=== PATIENT | female | born 1955 | race Caucasian/White ===

== ENCOUNTER 2018-11-03 06:30 | Inpatient (IN) | payer OTHER ==
[~2018-11-03] VITALS: Ht 162.6 cm; Wt 65.8 kg
[2018-11-03] MEDS ORDERED: HYDROmorphONE 1 MG/ML SYG IV STA (06:43)
[2018-11-03] MEDS ORDERED: ONDANSETRON 4 MG INJ IV STA (06:43)
[2018-11-03] MEDS ORDERED: SOD CHLORIDE 0.9% 1,000 ML IV STA (06:43)
[2018-11-03] MEDS ORDERED: IOHEXOL 100 ML ONE (07:49)
[2018-11-03] MEDS ORDERED: SOD CHLORIDE 0.9% 100 ML ONE (07:49)
--- NOTE | 2018-11-03 07:51 | ERD ---
ER Documentation Chief Complaint Chief Complaint left shoulder,breast, half body ppain x several days HPI 62F no significant past medical history presents to the emergency room complaining of left-sided thoracic pain. The patient describes severe 10 out of 10 sharp left-sided chest wall pain. She notes associated shortness of breath. The patient has had 4 days of symptoms have been progressively worsening. She denies any fevers or chills. No calf swelling or leg swelling or history of immobilization or DVT. The patient takes no estrogen supplementation. She denies any exertional symptoms, no diaphoresis. She denies abdominal pain or lower back pain. ROS All systems reviewed and are negative except as per history of present illness. Medications Home Meds Reported Medications Ibuprofen* (Motrin*) 800 Mg Tab, 800 MG PO Q8 PRN for PAIN, TAB 11/03/18 Cyclobenzaprine Hcl* (Cyclobenzaprine Hcl*) 10 Mg Tablet, 10 MG PO Q8 PRN for MUSCLE SPASMS, #60 TAB 11/03/18 Cholecalciferol* (Vitamin D3*) 1,000 Unit Tablet, 1000 UNIT PO DAILY, TAB 11/03/18 Estradiol* (Estrace*) 1 Mg Tablet, 1 MG PO DAILY, TAB 11/03/18 Fluoxetine Hcl* (Prozac*) 10 Mg Capsule, 30 MG PO DAILY, CAP 11/03/18 Allergies Allergies: Coded Allergies: Penicillins (Verified Allergy, Unknown, 11/03/18) morphine (Verified Allergy, Unknown, 11/03/18) pseudoephedrine (Verified Allergy, Unknown, 11/03/18) PMhx/Soc History of Surgery: Yes (l. shoulder sx, total hysterectomy, dolores lower eyelids) Hx Respiratory Disorders: Yes (asthma) Hx Miscellaneous Medical Probl: Yes (pre diabetic) Hx Alcohol Use: Yes (socially) Hx Substance Use: Yes (medicinal marijuana) Hx Tobacco Use: No Smoking Status: Former smoker FmHx Family History: No diabetes Physical Exam Vitals Vital Signs Date Temp Pulse Resp B/P (MAP) Pulse Ox O2 O2 Flow FiO2 Time Delivery Rate 11/03/18 70 10 160/80 100 Nasal 2.0 08:33 (106) Cannula 11/03/18 Nasal 5 06:50 Cannula 11/03/18 97.7 109 18 174/91 99 06:33 (118) Physical Exam General: Very uncomfortable Head: Normocephalic, atraumatic. Eyes: Pupils equally reactive, EOM intact ENT: Moist mucous membranes Neck: Supple, no lymphadenopathy Respiratory: Lungs clear bilaterally, no distress Cardiovascular: RRR, no murmurs, rubs, or gallops Abdominal: Soft, non-tender, non-distended, no peritoneal signs : Deferred MSK: No edema, no unilateral swelling, 5/5 strength Neurologic: Alert and oriented, moving all extremities, normal speech, no focal weakness, no cerebellar signs Skin: No rash Psych: Normal mood Result Diagram: 11/03/1865411/03/1855 Results 24 hrs Laboratory Tests Test 11/03/18 06:55 White Blood Count 10.4 10^3/ul Red Blood Count 5.29 10^6/ul Hemoglobin 14.7 g/dl Hematocrit 45.5 % Mean Corpuscular Volume 86.0 fl Mean Corpuscular Hemoglobin 27.8 pg Mean Corpuscular Hemoglobin Concent 32.3 g/dl Red Cell Distribution Width 15.2 % Platelet Count 332 10^3/UL Mean Platelet Volume 9.7 fl Immature Granulocytes % 0.500 % Neutrophils % 67.7 % Lymphocytes % 22.4 % Monocytes % 7.9 % Eosinophils % 0.8 % Basophils % 0.7 % Nucleated Red Blood Cells % 0.0 /100WBC Immature Granulocytes # 0.050 10^3/ul Neutrophils # 7.1 10^3/ul Lymphocytes # 2.3 10^3/ul Monocytes # 0.8 10^3/ul Eosinophils # 0.1 10^3/ul Basophils # 0.1 10^3/ul Nucleated Red Blood Cells # 0.0 10^3/ul Prothrombin Time 12.8 Sec Prothrombin Time Ratio 1.0 INR International Normalized Ratio 0.95 Activated Partial Thromboplast Time 31.8 Sec Sodium Level 143 mmol/L Potassium Level 4.2 mmol/L Chloride Level 107 mmol/L Carbon Dioxide Level 24 mmol/L Anion Gap 12 Blood Urea Nitrogen 15 mg/dl Creatinine 0.80 mg/dl Est Glomerular Filtrat Rate mL/min > 60 mL/min Glucose Level 131 mg/dl Calcium Level 9.9 mg/dl Troponin I < 0.012 ng/ml Current Medications Medications Dose Sig/Salomon Start Time Status Last (Trade) Ordered Route PRN Stop Time Admin Dose Reason Admin Sodium 1,000 ml @ Q1H STAT 11/03/18 DC 11/03/18 Chloride 1,000 mls/hr IV 06:43 07:01 11/03/18 07:42 1 mg ONCE STAT 11/03/18 DC 11/03/18 Hydromorphone IV 06:43 07:01 HCl 11/03/18 06:48 (Dilaudid) Ondansetron 4 mg ONCE STAT 11/03/18 DC 11/03/18 HCl (Zofran IV 06:43 07:01 Inj) 11/03/18 06:48 IV Flush 10 ml STK-MED 11/03/18 DC 11/03/18 (NS 10 ml) ONCE .ROUTE 07:49 08:12 11/03/18 07:50 Sodium 100 ml @ ud STK-MED 11/03/18 DC 11/03/18 Chloride ONCE .ROUTE 07:49 08:12 11/03/18 07:50 Iohexol 100 ml @ ud STK-MED 11/03/18 DC 11/03/18 ONCE .ROUTE 07:49 08:13 11/03/18 07:50 Apixaban 10 mg ONCE ONCE 11/03/18 DC (Eliquis) PO 09:00 11/03/18 09:01 Procedures/MDM EKG, MONITORS, & DIAGNOSTIC IMAGING: EKG: I reviewed and interpreted a 12-lead EKG. Rhythm: Normal sinus rhythm ST Changes: No contiguous ST segment elevations T waves: No contiguous T wave inversions Impression: [No evidence of acute cardiac ischemia] Chest x-ray: I reviewed and interpreted a 1 view of the chest Mediastinum: No enlargement Cardiac silhouette: No cardiomegaly Airspace: Clear lung wood bilaterally without evidence of pneumothorax Bones: No evidence of fracture CTPA: IMPRESSION: 1. Bilateral pulmonary emboli involving the right middle lobe, right in terlobar, right basal segmental and left basal segmental pulmonary arterial branches. 2. Small left pleural effusion with left lateral and posterior basilar subsegmental atelectasis. A small focal peripheral lateral basilar pulmonary infarct may be present. 3. Multiple hepatic cysts. 4. Heterogeneous sinusoidal appearance to the partially visualized upper spleen. Note a splenic infarct cannot be totally excluded. LAB INTERPRETATION: I reviewed the laboratory testing and it shows [no evidence of acute process] MEDICAL DECISION MAKING: The patient has quite severe thoracic pain. Differentials extremely broad and most likely musculoskeletal, muscle spasm versus pleurisy. However, the patient is describing a pleuritic component this raises a concern for pulmonary embolism. The patient qualifies for Wells moderate risk criteria therefore a CT PE would be indicated instead of d-dimer. Much lower clinical concern for aortic process given 4 days of symptoms. Low concern for ACS as well given no exertional symptoms, reproducible symptoms. ER COURSE: * Patient given pain control medication. * The patient has a CAT scan showing evidence of bilateral pulmonary emboli. * The patient has no contraindications to anticoagulation. Given the patient's hemodynamic stability and unlikely that she would require clot retrieval Eliquis was provided. First dose given in the emergency room. * Patient will be admitted for further management. CONSULTATION: [None] DISPOSITION PLAN: Accepting care team and consultations: I discussed the current laboratory data, diagnostic imaging and emergency care provided. Admitting team: Dr. Almazan Admitting team indication: Insurance directed Departure Diagnosis: Primary Impression: Bilateral pulmonary embolism Additional Impression: Pulmonary infarct Condition: JESÚS Braxton MD Nov 03, 2018 07:50
[2018-11-03] MEDS ORDERED: CYCL10TA7 PO (07:52)
[2018-11-03] MEDS ORDERED: FLUO10CA26 PO (07:52)
[2018-11-03] MEDS ORDERED: CHOL100062 PO (07:52)
[2018-11-03] MEDS ORDERED: ESTR1TAB23 PO (07:52)
[2018-11-03] MEDS ORDERED: IBUP800T48 PO (07:52)
[2018-11-03] MEDS ORDERED: APIXABAN 5 MG TABLET PO ONE (09:00)
[2018-11-03] MEDS ORDERED: ONDANSETRON 4 MG INJ IV PRN (09:30)
[2018-11-03] MEDS ORDERED: ACETAMINOPHEN 325 MG TAB PO PRN (09:30)
--- NOTE | 2018-11-03 10:58 | HP ---
Date/Time of Note Date/Time of Note DATE: 11/03/18 TIME: 10:52 Assessment/Plan VTE Prophylaxis Pharmacological prophylaxis: apixaban Lines/Catheters IV [facility] Type [facility] Saline Lock Assessment/Plan Hospital Course SUBJECTIVE: Seen and evaluated patient in ER room 4. Currently not in any acute distress. OBJECTIVE: Vital signs-see below PHYSICAL EXAM: Constitutional: Adequately built,not in acute distress. HEENT: Head atraumatic and normocephalic. Eyes: Extraocular muscles intact. Anicteric sclerae. Pupils equal bilaterally, reactive to light. NECK: Supple without lymph node. CHEST: Diminished bibasilar. . No wheezing. No rhonchi. HEART: S1, S2. Regular rate and rhythm. ABDOMEN: Soft/non tender with no rebound tenderness. Bowel sounds were present. EXTREMITIES: No cyanosis, clubbing or edema. NEUROLOGIC: Alert and oriented x3. No focal deficit. No sensory deficit. PSYCHOSOCIAL: No signs of depression. INTEGUMENTARY: No open wounds. ASSESSMENT AND PLAN: 62 yo F w/ asthma, medicinal marijuana use, left shoulder surgery, left eyelid surgery, total hysterectomy, prediabetes, borderline dyslipidemia,on estrogen sup brought into the emergency room with sudden onset of left-sided lower chest wall pain with inspiration which has been going on since Thursday after her road trip from [place], found to have bilateral PE.. Bilateral pulmonary embolism -Start anticoagulation preferably Eliquis-CM to work on insurance authorization. -Pulmonary consult -DVT ultrasound BLE -Stop estradiol Prediabetes -Obtain A1c -Monitor -Diet modifications Borderline dyslipidemia -We will follow-up with a lipid panel -Low-cholesterol diet Anxiety/depressive disorders -Resume home medications GERD -ppi Prophylaxis: Eliquis/Protonix Rest of the management depend on clinical course. Approximately 60-minute was spent on this history and physical. Patient was seen in collaboration with Dr. Smith. Result Diagram: 11/03/18 0655 11/03/18 0655 Results 24hrs Laboratory Tests Test 11/03/18 06:55 White Blood Count 10.4 Red Blood Count 5.29 Hemoglobin 14.7 Hematocrit 45.5 Mean Corpuscular Volume 86.0 Mean Corpuscular Hemoglobin 27.8 L Mean Corpuscular Hemoglobin Concent 32.3 Red Cell Distribution Width 15.2 H Platelet Count 332 Mean Platelet Volume 9.7 Immature Granulocytes % 0.500 H Neutrophils % 67.7 Lymphocytes % 22.4 Monocytes % 7.9 Eosinophils % 0.8 Basophils % 0.7 Nucleated Red Blood Cells % 0.0 Immature Granulocytes # 0.050 H Neutrophils # 7.1 Lymphocytes # 2.3 Monocytes # 0.8 Eosinophils # 0.1 Basophils # 0.1 Nucleated Red Blood Cells # 0.0 Prothrombin Time 12.8 Prothrombin Time Ratio 1.0 INR International Normalized Ratio 0.95 Activated Partial Thromboplast Time 31.8 Sodium Level 143 Potassium Level 4.2 Chloride Level 107 Carbon Dioxide Level 24 Anion Gap 12 Blood Urea Nitrogen 15 Creatinine 0.80 Est Glomerular Filtrat Rate mL/min > 60 Glucose Level 131 Calcium Level 9.9 Troponin I < 0.012 B-Type Natriuretic Peptide 148 H HPI/ROS Admit Date/Time Admit Date/Time Hx of Present Illness This is a 62-year-old female with a history of asthma, medicinal marijuana use, left shoulder surgery, left eyelid surgery, total hysterectomy, prediabetes, borderline dyslipidemia, brought into the emergency room with sudden onset of left-sided lower chest wall pain with inspiration which has been going on since Thursday after her road trip from [place]. Patient denied any palpitation, shortness of breath, diaphoresis, nausea, vomiting, abdominal pain, back pain, fever, chills or other constitutional symptoms. Patient also does take estrogen supplementation at home. In the emergency room, patient's initial labs unremarkable. Coag studies negative. Her chest CT showed Bilateral pulmonary emboli involving the right middle lobe, right interlobar, right basal segmental and left basal segmental pulmonary arterial branches. Vital signs stable except for initial pulse rate 109, blood pressure 174/91. EKG sinus tachycardia at rate of 109. Oxygen saturation 100% on 2 L nasal cannula. Patient was given 10 mg Eliquis in the emergency room. ROS A 12 point review of system was assessed and is negative other than what is mentioned in HPI. PMH/Family/Social Past Medical History See HPI Medications Current Medications Ondansetron HCl (Zofran Inj) 4 mg ER BRIDGE PRN IV NAUSEA/VOMITING; Start 11/03/18 at 09:30; Stop 11/04/18 at 09:29 Acetaminophen (Tylenol Tab) 650 mg ER BRIDGE PRN PO .MILD PAIN 1-3 OR TEMP; Start 11/03/18 at 09:30; Stop 11/04/18 at 09:29 Cholecalciferol (Vitamin D) 1,000 unit DAILY PO ; Start 11/04/18 at 09:00 Fluoxetine HCl (Prozac) 30 mg DAILY PO ; Start 11/03/18 at 12:00 Apixaban (Eliquis) 10 mg BID PO ; Start 11/03/18 at 21:00; Stop 11/10/18 at 20:59 Apixaban (Eliquis) 5 mg BID PO ; Start 11/11/18 at 09:00 Coded Allergies: Penicillins (Verified Allergy, Unknown, 11/03/18) morphine (Verified Allergy, Unknown, 11/03/18) pseudoephedrine (Verified Allergy, Unknown, 11/03/18) Past Surgical History See HPI Social History Social alcohol drinking. Use medical marijuana. Smoking Status: Former smoker Exam/Review of Systems Vital Signs Vitals Vital Signs Date Temp Pulse Resp B/P (MAP) Pulse Ox O2 O2 Flow FiO2 Time Delivery Rate 11/03/18 70 10 160/80 100 Nasal 2.0 08:33 (106) Cannula 11/03/18 97.7 06:33 ABBE PINTO NP Nov 03, 2018 10:57
[2018-11-03] MEDS ORDERED: NACL 0.9% 3 ML SYG IV SCH (11:00)
--- NOTE | 2018-11-03 12:32 | CONS ---
Assessment/Plan Assessment/Plan Assessment/Plan (Daily) Assessment and recommendations; 1. Patient admitted with chest pain with discovery of bilateral pulmonary emboli on CTA of the chest. Precipitating factor likely is long-term estradiol use. Discontinue apixaban. Switch to full dose Lovenox at least for 72 hours with switching over to apixaban or Eliquis. 2D echocardiogram and lower extremity venous Dopplers are pending. I did have a detailed discussion with the patient as well as her 2 daughters at bedside and answered all their questions. Patient likely will need 6 months of treatment. Consultation Date/Type/Reason Admit Date/Time Date of Consultation: Nov 03, 2018 Type of Consult Pulmonary Patient is a pleasant 62-year-old lady who came into the hospital with a 3-day history of sharp left-sided chest pain. The onset was sudden. The patient thought she may have pulled a muscle but the pain did not get relieved with medications. Patient came into the ER where a chest x-ray was done which was unremarkable. Subsequently CTA of the chest was done which is showing bilateral pulmonary emboli. Patient still complaining of left-sided chest pain with deep breathing but denies any coughing, sputum production or hemoptysis. According to her she was fine until 2 days ago when the symptoms started. Past medical history; 1. History of hysterectomy. Patient on long-term estradiol at home. 2. History of asthma. Medications; reviewed. Allergies; as outlined above. Social history; noncontributory. Family history; she is single, she has 2 daughters. No history of any clotting disorders in the family. Occupational history; patient just retired from an insurance company. Review of systems; denies any headache, visual changes. Complains of chest pain as outlined above. Denies any shortness of breath, abdominal pain, nausea vomiting. Any bleeding tendencies. Denies any edema any leg pain. Patient did travel recently to [place]. General exam; middle-aged female, awake alert, currently in no distress. Date/Time of Note DATE: 11/03/18 TIME: 12:28 Past Medical History Home Meds Reported Medications Ibuprofen* (Motrin*) 800 Mg Tab, 800 MG PO Q8 PRN for PAIN, TAB 11/03/18 Cyclobenzaprine Hcl* (Cyclobenzaprine Hcl*) 10 Mg Tablet, 10 MG PO Q8 PRN for MUSCLE SPASMS, #60 TAB 11/03/18 Cholecalciferol* (Vitamin D3*) 1,000 Unit Tablet, 1000 UNIT PO DAILY, TAB 11/03/18 Estradiol* (Estrace*) 1 Mg Tablet, 1 MG PO DAILY, TAB 11/03/18 Fluoxetine Hcl* (Prozac*) 10 Mg Capsule, 30 MG PO DAILY, CAP 11/03/18 Medications Current Medications Ondansetron HCl (Zofran Inj) 4 mg ER BRIDGE PRN IV NAUSEA/VOMITING; Start 11/03/18 at 09:30; Stop 11/04/18 at 09:29 Acetaminophen (Tylenol Tab) 650 mg ER BRIDGE PRN PO .MILD PAIN 1-3 OR TEMP; Start 11/03/18 at 09:30; Stop 11/04/18 at 09:29 Cholecalciferol (Vitamin D) 1,000 unit DAILY PO ; Start 11/04/18 at 09:00 Fluoxetine HCl (Prozac) 30 mg DAILY PO ; Start 11/03/18 at 12:00 Apixaban (Eliquis) 10 mg BID PO ; Start 11/03/18 at 21:00; Stop 11/10/18 at 20:59 Apixaban (Eliquis) 5 mg BID PO ; Start 11/11/18 at 09:00 IV Flush (NS 3 ml) 3 ml PER PROTOCOL IV ; Start 11/03/18 at 11:00 Ondansetron HCl (Zofran Inj) 4 mg Q6H PRN IV NAUSEA/VOMITING; Start 11/03/18 at 11:00 Acetaminophen (Tylenol Tab) 650 mg Q6H PRN PO .PAIN 1-3 OR TEMP; Start 11/03/18 at 11:00 Hydromorphone HCl (Dilaudid) 1 mg Q4H PRN IV .SEVERE PAIN 7-10; Start 11/03/18 at 11:00 Pantoprazole (Protonix Tab) 40 mg DAILY@06 PO ; Start 11/04/18 at 06:00 Allergies: Coded Allergies: Penicillins (Verified Allergy, Unknown, 11/03/18) morphine (Verified Allergy, Unknown, 11/03/18) pseudoephedrine (Verified Allergy, Unknown, 11/03/18) Social History Smoking Status: Former smoker Exam/Review of Systems Exam Vitals Vital Signs Date Temp Pulse Resp B/P (MAP) Pulse Ox O2 O2 Flow FiO2 Time Delivery Rate 11/03/18 82 20 165/84 100 Nasal 2.0 11:32 (111) Cannula 11/03/18 97.7 06:33 Exam H EENT exam; supple neck, no JVD. No lymphadenopathy. Midline trachea. No thyromegaly. Patient has good dentition. No neck masses Chest exam; clear to auscultation. S1-S2 audible, no murmurs. No gallop. Regular rhythm. Abdomen exam; soft, nontender. No organomegaly. Bowel sounds audible. Extremity exam; no peripheral edema clubbing. Pulses 2+. FACILITY WORK[employer] exam; no focal deficit. Results Result Diagram: 11/03/18 0655 11/03/18 0655 Results 24hrs Laboratory Tests Test 11/03/18 06:55 White Blood Count 10.4 Red Blood Count 5.29 Hemoglobin 14.7 Hematocrit 45.5 Mean Corpuscular Volume 86.0 Mean Corpuscular Hemoglobin 27.8 L Mean Corpuscular Hemoglobin Concent 32.3 Red Cell Distribution Width 15.2 H Platelet Count 332 Mean Platelet Volume 9.7 Immature Granulocytes % 0.500 H Neutrophils % 67.7 Lymphocytes % 22.4 Monocytes % 7.9 Eosinophils % 0.8 Basophils % 0.7 Nucleated Red Blood Cells % 0.0 Immature Granulocytes # 0.050 H Neutrophils # 7.1 Lymphocytes # 2.3 Monocytes # 0.8 Eosinophils # 0.1 Basophils # 0.1 Nucleated Red Blood Cells # 0.0 Prothrombin Time 12.8 Prothrombin Time Ratio 1.0 INR International Normalized Ratio 0.95 Activated Partial Thromboplast Time 31.8 Sodium Level 143 Potassium Level 4.2 Chloride Level 107 Carbon Dioxide Level 24 Anion Gap 12 Blood Urea Nitrogen 15 Creatinine 0.80 Est Glomerular Filtrat Rate mL/min > 60 Glucose Level 131 Calcium Level 9.9 Troponin I < 0.012 B-Type Natriuretic Peptide 148 H Medications Medication Current Medications Ondansetron HCl (Zofran Inj) 4 mg ER BRIDGE PRN IV NAUSEA/VOMITING; Start 11/03/18 at 09:30; Stop 11/04/18 at 09:29 Acetaminophen (Tylenol Tab) 650 mg ER BRIDGE PRN PO .MILD PAIN 1-3 OR TEMP; Start 11/03/18 at 09:30; Stop 11/04/18 at 09:29 Cholecalciferol (Vitamin D) 1,000 unit DAILY PO ; Start 11/04/18 at 09:00 Fluoxetine HCl (Prozac) 30 mg DAILY PO ; Start 11/03/18 at 12:00 Apixaban (Eliquis) 10 mg BID PO ; Start 11/03/18 at 21:00; Stop 11/10/18 at 20:59 Apixaban (Eliquis) 5 mg BID PO ; Start 11/11/18 at 09:00 IV Flush (NS 3 ml) 3 ml PER PROTOCOL IV ; Start 11/03/18 at 11:00 Ondansetron HCl (Zofran Inj) 4 mg Q6H PRN IV NAUSEA/VOMITING; Start 11/03/18 at 11:00 Acetaminophen (Tylenol Tab) 650 mg Q6H PRN PO .PAIN 1-3 OR TEMP; Start 11/03/18 at 11:00 Hydromorphone HCl (Dilaudid) 1 mg Q4H PRN IV .SEVERE PAIN 7-10; Start 11/03/18 at 11:00 Pantoprazole (Protonix Tab) 40 mg DAILY@06 PO ; Start 11/04/18 at 06:00 ARELY TAO Nov 03, 2018 12:32
[2018-11-03] MEDS: HYDROmorphONE 0.5 MG/0.5 ML SYG IV PRN ×2 (13:34→18:23)
[2018-11-03] MEDS: FLUOXETINE 10 MG CAP PO SCH (13:40)
[2018-11-03 15:45] VITALS: Ht 162.6 cm; Wt 65.8 kg
[2018-11-03 16:11] VITALS: BP 171/77; PULSE 71; RESP 16
[2018-11-03 16:37] VITALS: BP 153/69
[2018-11-03 19:42] VITALS: BP 162/72; PULSE 73; RESP 20
[2018-11-03] MEDS: ENOXAPARIN 80 MG/0.8 ML SYG SC SCH (20:23)
[2018-11-03] MEDS ORDERED: APIXABAN 5 MG TABLET PO SCH (21:00)
[2018-11-03] MEDS ORDERED: ZOLPIDEM 5 MG TAB PO PRN (23:00)
[2018-11-04 01:13] VITALS: BP 143/72; PULSE 76; RESP 20
[2018-11-04 04:00] VITALS: BP 123/79; PULSE 78; RESP 20
[2018-11-04] MEDS: HYDROmorphONE 0.5 MG/0.5 ML SYG IV PRN (05:36)
[2018-11-04] MEDS: PANTOPRAZOLE (EC) 40 MG TAB PO SCH (05:53)
[2018-11-04 07:20] VITALS: BP 139/70; PULSE 75
[2018-11-04] MEDS ORDERED: CHOLECALCIFEROL 1,000 UNIT TAB PO SCH (09:00)
[2018-11-04] MEDS ORDERED: KETOROLAC 15 MG INJ IV STA (09:02)
[2018-11-04] MEDS ORDERED: HYDROmorphONE 2 MG/ML SYG ONE (09:12)
[2018-11-04] MEDS ORDERED: HYDROmorphONE 2 MG/ML SYG IV STA (09:12)
[2018-11-04] MEDS: FLUOXETINE 10 MG CAP PO SCH (09:19)
[2018-11-04] MEDS: ENOXAPARIN 80 MG/0.8 ML SYG SC SCH ×2 (09:28→20:39)
[2018-11-04] MEDS ORDERED: ERGOCALCIFEROL 50,000 UNIT CAP PO SCH (10:30)
[2018-11-04] MEDS: OXYCODONE/ACETAMINOPHEN (5/325) TAB PO PRN (10:47)
[2018-11-04] MEDS: ONDANSETRON 4 MG INJ IV PRN (10:47)
[2018-11-04] MEDS ORDERED: APIX5TAB PO (11:10)
--- NOTE | 2018-11-04 11:23 | PN ---
Date/Time of Note Date/Time of Note DATE: 11/04/18 TIME: 11:20 Assessment/Plan VTE Prophylaxis Risk score (from Nsg)>0 risk: 3 SCD applied (from Nsg): Yes Pharmacological prophylaxis: LMWH Lines/Catheters IV Catheter Type (from Nrsg): Peripheral IV Urinary Cath still in place: No Assessment/Plan Hospital Course SUBJECTIVE: Patient continued to have lower chest wall pain with inspiration. OBJECTIVE: Vital signs-see below PHYSICAL EXAM: Constitutional: Adequately built,not in acute distress. HEENT: Head atraumatic and normocephalic. Eyes: Extraocular muscles intact. Anicteric sclerae. Pupils equal bilaterally, reactive to light. NECK: Supple without lymph node. CHEST: Diminished bibasilar. . No wheezing. No rhonchi. HEART: S1, S2. Regular rate and rhythm. ABDOMEN: Soft/non tender with no rebound tenderness. Bowel sounds were present. EXTREMITIES: No cyanosis, clubbing or edema. NEUROLOGIC: Anxious+ Alert and oriented x3. No focal deficit. No sensory deficit. PSYCHOSOCIAL: No signs of depression. INTEGUMENTARY: No open wounds. ASSESSMENT AND PLAN: 62 yo F w/ asthma, medicinal marijuana use, left shoulder surgery, left eyelid surgery, total hysterectomy, prediabetes, borderline dyslipidemia,on estrogen sup brought into the emergency room with sudden onset of left-sided lower chest wall pain with inspiration which has been going on since Thursday after her road trip from [place], found to have bilateral PE.. Bilateral pulmonary embolism -Kiln Feeder recommended Lovenox ATC x72 hours, followed by Eliquis. -Patient was counseled on stop taking estradiol. - to make sure Eliquis is covered. Not patient with [facility] insurance status. Left lower chest wall pain with inspiration, secondary to PE -ACS ruled out with serial troponins. -Pain control Mild dyslipidemia -Continue with diet regimen. Anxiety/depressive disorders -cont. home medications -refused xanax GERD -ppi Prophylaxis: lovenox/Protonix Disposition: Continue with Lovenox anticoagulation. Case management to make sure Eliquis is authorized. Likely DC in the next 48 hours. Patient was seen in collaboration with Dr. Smith. Result Diagram: 11/04/18 0517 11/04/18 0517 Results 24hrs Laboratory Tests Test 11/03/18 16:05 11/03/18 22:02 11/04/18 05:15 11/04/18 05:17 Creatine Kinase 26 24 Creatine Kinase 1.3 1.3 Index Creatinine Kinase MB 0.33 0.32 (Mass) Troponin I < 0.012 < 0.012 Hemoglobin A1c 5.2 White Blood Count 6.7 # Red Blood Count 4.65 Hemoglobin 12.9 Hematocrit 40.5 Mean Corpuscular 87.1 Volume Mean Corpuscular 27.7 L Hemoglobin Mean Corpuscular 31.9 L Hemoglobin Concent Red Cell 15.0 H Distribution Width Platelet Count 234 # Mean Platelet Volume 9.6 Immature 0.400 Granulocytes % Neutrophils % 65.5 Lymphocytes % 23.6 Monocytes % 8.6 Eosinophils % 1.2 Basophils % 0.7 Nucleated Red Blood 0.0 Cells % Immature 0.030 Granulocytes # Neutrophils # 4.4 Lymphocytes # 1.6 Monocytes # 0.6 Eosinophils # 0.1 Basophils # 0.1 Nucleated Red Blood 0.0 Cells # Sodium Level 141 Potassium Level 4.6 Chloride Level 108 Carbon Dioxide Level 27 Anion Gap 6 Blood Urea Nitrogen 14 Creatinine 0.58 Est Glomerular > 60 Filtrat Rate mL/min Glucose Level 105 Calcium Level 9.1 Phosphorus Level 3.8 Magnesium Level 2.1 Total Bilirubin 0.5 Direct Bilirubin 0.00 Indirect Bilirubin 0.5 Aspartate Amino 33 Transf (AST/SGOT) Alanine 23 Aminotransferase (AL T/SGPT) Alkaline Phosphatase 60 Total Protein 6.6 Albumin 3.7 Globulin 2.90 Albumin/Globulin 1.27 Ratio Triglycerides Level 102 Cholesterol Level 204 H LDL Cholesterol, 131 Calculated HDL Cholesterol 53 Cholesterol/HDL 3.8 Ratio Test 11/04/18 05:18 Vitamin D < 12.8 L 1,25-Dihydroxy Exam/Review of Systems Exam Vitals Vital Signs Date Temp Pulse Resp B/P (MAP) Pulse Ox O2 O2 Flow FiO2 Time Delivery Rate 11/04/18 2.0 07:45 11/04/18 97.6 75 139/70 07:20 (93) 11/04/18 20 98 04:00 11/03/18 Nasal 15:02 Cannula Intake and Output 11/03/18 11/03/18 11/04/18 1515:00 23:00 07:00 IntakeIntake Total 300 ml BalanceBalance 300 ml Results Results 24hrs Laboratory Tests Test 11/03/18 16:05 7/10/19 22:02 11/04/18 05:15 11/04/18 05:17 Creatine Kinase 26 24 Creatine Kinase 1.3 1.3 Index Creatinine Kinase MB 0.33 0.32 (Mass) Troponin I < 0.012 < 0.012 Hemoglobin A1c 5.2 White Blood Count 6.7 # Red Blood Count 4.65 Hemoglobin 12.9 Hematocrit 40.5 Mean Corpuscular 87.1 Volume Mean Corpuscular 27.7 L Hemoglobin Mean Corpuscular 31.9 L Hemoglobin Concent Red Cell 15.0 H Distribution Width Platelet Count 234 # Mean Platelet Volume 9.6 Immature 0.400 Granulocytes % Neutrophils % 65.5 Lymphocytes % 23.6 Monocytes % 8.6 Eosinophils % 1.2 Basophils % 0.7 Nucleated Red Blood 0.0 Cells % Immature 0.030 Granulocytes # Neutrophils # 4.4 Lymphocytes # 1.6 Monocytes # 0.6 Eosinophils # 0.1 Basophils # 0.1 Nucleated Red Blood 0.0 Cells # Sodium Level 141 Potassium Level 4.6 Chloride Level 108 Carbon Dioxide Level 27 Anion Gap 6 Blood Urea Nitrogen 14 Creatinine 0.58 Est Glomerular > 60 Filtrat Rate mL/min Glucose Level 105 Calcium Level 9.1 Phosphorus Level 3.8 Magnesium Level 2.1 Total Bilirubin 0.5 Direct Bilirubin 0.00 Indirect Bilirubin 0.5 Aspartate Amino 33 Transf (AST/SGOT) Alanine 23 Aminotransferase (AL T/SGPT) Alkaline Phosphatase 60 Total Protein 6.6 Albumin 3.7 Globulin 2.90 Albumin/Globulin 1.27 Ratio Triglycerides Level 102 Cholesterol Level 204 H LDL Cholesterol, 131 Calculated HDL Cholesterol 53 Cholesterol/HDL 3.8 Ratio Test 11/04/18 05:18 Vitamin D < 12.8 L 1,25-Dihydroxy Medications Medication Current Medications Fluoxetine HCl (Prozac) 30 mg DAILY PO Last administered on 11/04/18at 09:19; Admin Dose 30 MG; Start 11/03/18 at 12:00 IV Flush (NS 3 ml) 3 ml PER PROTOCOL IV ; Start 11/03/18 at 11:00 Ondansetron HCl (Zofran Inj) 4 mg Q6H PRN IV NAUSEA/VOMITING Last administered on 11/04/18at 10:47; Admin Dose 4 MG; Start 11/03/18 at 11:00 Acetaminophen (Tylenol Tab) 650 mg Q6H PRN PO .PAIN 1-3 OR TEMP; Start 11/03/18 at 11:00 Pantoprazole (Protonix Tab) 40 mg DAILY@06 PO ; Start 11/04/18 at 06:00 Enoxaparin Sodium (Lovenox) 65 mg Q12 SC Last administered on 11/04/18at 09:28; Admin Dose 65 MG; Start 11/03/18 at 21:00 Oxycodone/ Acetaminophen (Percocet (5/ 325)) 1 tab Q4H PRN PO MODERATE PAIN LEVEL 4-6 Last administered on 11/04/18at 10:47; Admin Dose 1 TAB; Start 11/04/18 at 09:30 Ergocalciferol (Drisdol) 50,000 unit Th@09 PO Last administered on 11/04/18at 10:47; Admin Dose 50,000 UNIT; Start 11/04/18 at 10:30 Hydromorphone HCl (Dilaudid) 2 mg Q4H PRN IV .SEVERE PAIN 7-10; Start 11/04/18 at 11:00 Docusate Sodium (Colace) 200 mg BID PO ; Start 11/04/18 at 11:30 Psyllium Hydrophilic Mucilloid (Metamucil) 1 pkt ONCE ONCE PO ; Start 11/04/18 at 11:30; Stop 11/04/18 at 11:31 ABBE PINTO NP Nov 04, 2018 11:23
--- NOTE | 2018-11-04 11:28 | CONS ---
Consultation Date/Type/Reason Admit Date/Time Nov 03, 2018 at 09:30 Initial Consult Date 11/03/18 Type of Consult Pulmonary Patient is a pleasant 62-year-old lady who came into the hospital with a 3-day history of sharp left-sided chest pain. The onset was sudden. The patient thought she may have pulled a muscle but the pain did not get relieved with medications. Patient came into the ER where a chest x-ray was done which was unremarkable. Subsequently CTA of the chest was done which is showing bilateral pulmonary emboli. Patient still complaining of left-sided chest pain with deep breathing but denies any coughing, sputum production or hemoptysis. According to her she was fine until 2 days ago when the symptoms started. Past medical history; 1. History of hysterectomy. Patient on long-term estradiol at home. 2. History of asthma. Medications; reviewed. Allergies; as outlined above. Social history; noncontributory. Family history; she is single, she has 2 daughters. No history of any clotting disorders in the family. Occupational history; patient just retired from an insurance company. Review of systems; denies any headache, visual changes. Complains of chest pain as outlined above. Denies any shortness of breath, abdominal pain, nausea vomiting. Any bleeding tendencies. Denies any edema any leg pain. Patient did travel recently to [place]. General exam; middle-aged female, awake alert, currently in no distress. Date/Time of Note DATE: 11/04/18 TIME: 11:26 24 HR Interval Summary Free Text/Dictation Patient is still complaining of significant left-sided chest pain brought on by deep breathing. But denies any shortness breath, coughing, fever, sputum production or hemoptysis. General exam; middle-aged female, awake alert, currently no distress. HEENT exam; supple neck, no JVD. No lymphadenopathy. Midline trachea. No thyr omegaly. Patient has good dentition. Chest exam; diminished but clear breath sounds. S1-S2 audible, no murmurs. No gallop. Regular rhythm. Abdomen exam; soft, nontender. Bowel sounds audible. Extremity exam; no peripheral edema clubbing. SCOOP DRIVER exam; no focal deficit. Assessment and recommendations; 1. Patient admitted with chest pain with CTA showing bilateral pulmonary emboli. Maintained on full dose Lovenox. 2. Pleuritic chest pain. Currently on Dilaudid. 3. History of depression. 4. Prior history of hysterectomy. 5. Lower extremity venous Doppler is negative for any DVT. Continue current supportive care. Anticipate discharge in 48 hours if the pain is well controlled. Patient will need at least 6 months of anticoagulation. Patient to be taken off any further estradiol from now on.. Exam/Review of Systems Exam Vitals Vital Signs Date Temp Pulse Resp B/P (MAP) Pulse Ox O2 O2 Flow FiO2 Time Delivery Rate 11/04/18 2.0 07:45 11/04/18 97.6 75 139/70 07:20 (93) 11/04/18 20 98 04:00 11/03/18 Nasal 15:02 Cannula Intake and Output 11/03/18 11/03/18 11/04/18 1515:00 23:00 07:00 IntakeIntake Total 300 ml BalanceBalance 300 ml Results Result Diagram: 11/04/18 0517 11/04/18 0517 Results 24hrs Laboratory Tests Test 11/03/18 16:05 11/03/18 22:02 11/04/18 05:15 11/04/18 05:17 Creatine Kinase 26 24 Creatine Kinase 1.3 1.3 Index Creatinine Kinase MB 0.33 0.32 (Mass) Troponin I < 0.012 < 0.012 Hemoglobin A1c 5.2 White Blood Count 6.7 # Red Blood Count 4.65 Hemoglobin 12.9 Hematocrit 40.5 Mean Corpuscular 87.1 Volume Mean Corpuscular 27.7 L Hemoglobin Mean Corpuscular 31.9 L Hemoglobin Concent Red Cell 15.0 H Distribution Width Platelet Count 234 # Mean Platelet Volume 9.6 Immature 0.400 Granulocytes % Neutrophils % 65.5 Lymphocytes % 23.6 Monocytes % 8.6 Eosinophils % 1.2 Basophils % 0.7 Nucleated Red Blood 0.0 Cells % Immature 0.030 Granulocytes # Neutrophils # 4.4 Lymphocytes # 1.6 Monocytes # 0.6 Eosinophils # 0.1 Basophils # 0.1 Nucleated Red Blood 0.0 Cells # Sodium Level 141 Potassium Level 4.6 Chloride Level 108 Carbon Dioxide Level 27 Anion Gap 6 Blood Urea Nitrogen 14 Creatinine 0.58 Est Glomerular > 60 Filtrat Rate mL/min Glucose Level 105 Calcium Level 9.1 Phosphorus Level 3.8 Magnesium Level 2.1 Total Bilirubin 0.5 Direct Bilirubin 0.00 Indirect Bilirubin 0.5 Aspartate Amino 33 Transf (AST/SGOT) Alanine 23 Aminotransferase (AL T/SGPT) Alkaline Phosphatase 60 Total Protein 6.6 Albumin 3.7 Globulin 2.90 Albumin/Globulin 1.27 Ratio Triglycerides Level 102 Cholesterol Level 204 H LDL Cholesterol, 131 Calculated HDL Cholesterol 53 Cholesterol/HDL 3.8 Ratio Test 11/04/18 05:18 Vitamin D < 12.8 L 1,25-Dihydroxy Medications Medication Current Medications Fluoxetine HCl (Prozac) 30 mg DAILY PO Last administered on 11/04/18at 09:19; Admin Dose 30 MG; Start 11/03/18 at 12:00 IV Flush (NS 3 ml) 3 ml PER PROTOCOL IV ; Start 11/03/18 at 11:00 Ondansetron HCl (Zofran Inj) 4 mg Q6H PRN IV NAUSEA/VOMITING Last administered on 11/04/18at 10:47; Admin Dose 4 MG; Start 11/03/18 at 11:00 Acetaminophen (Tylenol Tab) 650 mg Q6H PRN PO .PAIN 1-3 OR TEMP; Start 11/03/18 at 11:00 Pantoprazole (Protonix Tab) 40 mg DAILY@06 PO ; Start 11/04/18 at 06:00 Enoxaparin Sodium (Lovenox) 65 mg Q12 SC Last administered on 11/04/18at 09:28; Admin Dose 65 MG; Start 11/03/18 at 21:00 Oxycodone/ Acetaminophen (Percocet (5/ 325)) 1 tab Q4H PRN PO MODERATE PAIN LEVEL 4-6 Last administered on 11/04/18at 10:47; Admin Dose 1 TAB; Start 11/04/18 at 09:30 Ergocalciferol (Drisdol) 50,000 unit Th@09 PO Last administered on 11/04/18at 10:47; Admin Dose 50,000 UNIT; Start 11/04/18 at 10:30 Hydromorphone HCl (Dilaudid) 2 mg Q4H PRN IV .SEVERE PAIN 7-10; Start 11/04/18 at 11:00 Docusate Sodium (Colace) 200 mg BID PO ; Start 11/04/18 at 11:30 Psyllium Hydrophilic Mucilloid (Metamucil) 1 pkt ONCE ONCE PO ; Start 11/04/18 at 11:30; Stop 11/04/18 at 11:31 ARELY TAO Nov 04, 2018 11:28
[2018-11-04] MEDS ORDERED: PSYLLIUM 28% PACKET PO ONE ×2 (11:30→20:00)
[2018-11-04] MEDS: DOCUSATE SODIUM 100 MG CAP PO SCH ×2 (11:30→20:18)
[2018-11-04] MEDS ORDERED: ALBUTEROL/IPRATROPIUM (NEB) 3 ML AMP HHN STA (11:39)
[2018-11-04 12:10] VITALS: BP 149/66; PULSE 80; RESP 18
[2018-11-04] MEDS: HYDROmorphONE 2 MG/ML SYG IV PRN (12:59)
[2018-11-04] MEDS ORDERED: ONDANSETRON 4 MG INJ IV STA (14:11)
[2018-11-04] MEDS: METOCLOPRAMIDE 10 MG INJ IV SCH ×3 (14:30→23:17)
[2018-11-04] MEDS: SOD CHLORIDE 0.9% 1,000 ML IV SCH (14:32)
[2018-11-04 15:55] VITALS: BP 162/70; PULSE 68; RESP 16
[2018-11-04] MEDS: ACETAMINOPHEN 325 MG TAB PO PRN (17:37)
--- NOTE | 2018-11-04 18:56 | RADRPT ---
Echocardiogram Report Patient Name: VANNA PEREZPatient ID: [id number] : 1955 (63y )Study Date: 11/03/2018 2:31:42 PM Gender: FAccession #: [id number] Tech: Sadiq [facility] Location: [facility] Ref.Physician: ABBE PINTO Height(Cm): BSA: Weight(Kg): Quality: AdequateOrder Physician: ABBE PINTO Account #: Procedures: Echocardiographic Report: Transthoracic echocardiogram with complete 2D, M-Mode, and doppler examination. Indications: Evaluate Left Ventricular function. Measurements: 2D/M Mode Doppler Measurement Value Normal Range Measurement Value Normal Range LVIDd 2D 4.4 [ 3.8 - 5.2 ] cm AV Peak Taras 1.3 [ 100.0 - 170.0 ] cm/sec LVIDs 2D 3.3 [ 2.2 - 3.5 ] cm AV Peak PG 7.0 [ 2.0 - 9.0 ] mmHg LVPWd 2D 1.0 [ 0.6 - 0.9 ] cm LVOT Peak Taras 0.8 [ 70.0 - 110.0 ] cm/sec IVSd 2D 0.9 [ 0.6 - 0.9 ] cm LVOT Peak PG 3.0 [ 2.0 - 6.0 ] mmHg AoR Diam 2D 2.5 [ 2.3 - 3.1 ] cm MV E Peak Taras 0.7 [ 60.0 - 130.0 ] cm/sec EDV 2D 88.6 [ 46.0 - 106.0 ] ml MV A Peak Taras 1.0 [ 100.0 - 120.0 ] cm/sec ESV 2D 42.8 [ 14.0 - 42.0 ] ml MV E/A 0.7 [ 0.8 - 1.5 ] ratio EF 2D 51.7 [ 54.0 - 74.0 ] percent MV Decel Time 201 [ 104 - 258 ] msec LA Dimen 2D 2.9 [ 2.7 - 3.8 ] cm Lat E` Taras 0.1 [ 10.0 - 15.0 ] cm/sec Lateral E/E` 9.6 [ 1.0 - 2.0 ] ratio Med E` Taras 0.1 cm/sec MV E/A 0.7 [ 0.8 - 1.5 ] ratio TR Peak Taras 2.0 [ 100.0 - 280.0 ] cm/sec TR Peak PG 16.0 mmHg RVSP 19.0 [ 10.0 - 36.0 ] mmHg Findings: Left Ventricle: Normal left ventricular systolic function. Normal left ventricular cavity size. Normal left ventricular wall thickness. Ejection fraction is visually estimated at 55 %. Tissue Doppler/Mitral Doppler indices are consistent with impaired relaxation (Stage I diastolic dysfunction). Right Ventricle: Normal right ventricular size. Normal right ventricular systolic function. Left Atrium: The left atrium is normal in size. Right Atrium: The right atrium is normal in size. Mitral Valve: Mild mitral leaflet calcification. Mild mitral annular calcification. Trace mitral regurgitation. Aortic Valve: No significant aortic stenosis or insufficiency. Aortic cusps appear mildly calcified. Tricuspid Valve: Normal appearance of the tricuspid valve. The estimated Peak RVSP is 19 mmHg. There is trace tricuspid regurgitation. Pericardium: Normal pericardium with no significant pericardial effusion. Aorta: Normal aortic root. IVC: Normal size and normal respiratory collapse consistent with normal right atrial pressure. Conclusions: Normal left ventricular systolic function. Normal left ventricular cavity size. Normal left ventricular wall thickness. Ejection fraction is visually estimated at 55 %. Tissue Doppler/Mitral Doppler indices are consistent with impaired relaxation (Stage I diastolic dysfunction). Normal right ventricular size. Normal right ventricular systolic function. No significant valvular stenosis or regurgitation seen. Normal pericardium with no significant pericardial effusion. Electronically Signed By: Tom Dodson 2018-11-04 18:56:05 PDT
[2018-11-04 20:00] VITALS: BP 136/64; PULSE 80; RESP 20
[2018-11-04] MEDS: ZOLPIDEM 5 MG TAB PO PRN (23:17)
[2018-11-05] VITALS (8 sets, daily range): BP systolic 121–181; BP diastolic 68–82; PULSE 20–89; RESP 16–20
[2018-11-05] MEDS: SOD CHLORIDE 0.9% 1,000 ML IV SCH ×2 (03:00→05:29)
[2018-11-05] MEDS: METOCLOPRAMIDE 10 MG INJ IV SCH (05:28)
[2018-11-05] MEDS: PANTOPRAZOLE (EC) 40 MG TAB PO SCH (05:33)
[2018-11-05] MEDS: HYDROmorphONE 2 MG/ML SYG IV PRN (08:07)
[2018-11-05] MEDS: ONDANSETRON 4 MG INJ IV PRN (08:14)
[2018-11-05] MEDS: ENOXAPARIN 80 MG/0.8 ML SYG SC SCH ×2 (08:27→21:10)
[2018-11-05] MEDS: DOCUSATE SODIUM 100 MG CAP PO SCH ×2 (09:16→21:03)
[2018-11-05] MEDS: FLUOXETINE 10 MG CAP PO SCH (09:16)
--- NOTE | 2018-11-05 12:45 | CONS ---
Consult Date/Type/Reason Admit Date/Time Nov 03, 2018 at 09:30 Initial Consult Date 11/03/18 Type of Consult Pulmonary Date/Time of Note DATE: 11/05/18 TIME: 12:44 Subjective Patient comfortable this morning still having pleuritic chest pain Objective Vital Signs Date Temp Pulse Resp B/P (MAP) Pulse Ox O2 O2 Flow FiO2 Time Delivery Rate 11/05/18 98.1 76 17 121/68 99 11:26 (85) 11/05/18 Nasal 04:38 Cannula 11/05/18 3.0 01:31 11/04/18 32 12:42 Intake and Output 11/04/18 11/04/18 11/05/18 1515:00 23:00 07:00 IntakeIntake Total 600 ml 300 ml 600 ml BalanceBalance 600 ml 300 ml 600 ml Exam GENERAL: VITAL SIGNS: per chart NECK: Supple. No JVD or lymphadenopathy. CARDIAC EXAM: S1, S2. No added sounds or murmurs. CHEST: clear bilaterally, No added sounds, rales or wheezes ABDOMEN: Soft, nontender. No guarding or rebound. EXTREMITIES: No cyanosis, clubbing or edema. NEUROLOGIC: Generalized weakness. No focal deficits. Vent Setting Fraction of Inspired Oxygen pe: 32 Results/Medications Result Diagram: 11/04/1851611/04/18516 Medications Current Medications Fluoxetine HCl (Prozac) 30 mg DAILY PO Last administered on 11/05/18at 09:16; Admin Dose 30 MG; Start 11/03/18 at 12:00 IV Flush (NS 3 ml) 3 ml PER PROTOCOL IV ; Start 11/03/18 at 11:00 Ondansetron HCl (Zofran Inj) 4 mg Q6H PRN IV NAUSEA/VOMITING Last administered on 11/05/18at 08:14; Admin Dose 4 MG; Start 11/03/18 at 11:00 Acetaminophen (Tylenol Tab) 650 mg Q6H PRN PO .PAIN 1-3 OR TEMP Last administered on 11/04/18at 17:37; Admin Dose 650 MG; Start 11/03/18 at 11:00 Pantoprazole (Protonix Tab) 40 mg DAILY@06 PO ; Start 11/04/18 at 06:00 Enoxaparin Sodium (Lovenox) 65 mg Q12 SC Last administered on 11/05/18at 08:27; Admin Dose 65 MG; Start 11/03/18 at 21:00 Oxycodone/ Acetaminophen (Percocet (5/ 325)) 1 tab Q4H PRN PO MODERATE PAIN LEVEL 4-6 Last administered on 11/04/18 10:47; Admin Dose 1 TAB; Start 11/04/18 at 09:30 Ergocalciferol (Drisdol) 50,000 unit Th@09 PO Last administered on 11/04/18 10:47; Admin Dose 50,000 UNIT; Start 11/04/18 at 10:30 Docusate Sodium (Colace) 200 mg BID PO Last administered on 11/05/18 09:16; Admin Dose 200 MG; Start 11/04/18 at 11:30 Sodium Chloride 1,000 ml @ 80 mls/hr [id number] IV Last administered on 11/05/18 05:29; Admin Dose 80 MLS/HR; Start 11/04/18 at 14:30 Zolpidem Tartrate (Ambien) 5 mg HS PRN PO INSOMNIA Last administered on 11/04/18 23:17; Admin Dose 5 MG; Start 11/04/18 at 23:30 Hydromorphone HCl (Dilaudid) 1 mg Q4H PRN IV .SEVERE PAIN 7-10; Start 11/05/18 at 15:00 Assessment/Plan Hospital Course (Demo Recall) Assessment 1. Acute pulmonary embolus first episode on hormonal therapy 2. Pleuritic chest pain 3. No deep vein thrombosis Plan 1. Continue anticoagulation with Lovenox and Eliquis 2. Anticipate discharge tomorrow 3. Follow-up with me or pulmonary as an outpatient. WENDIE THRASHER MD, [facility] Nov 05, 2018 12:45
--- NOTE | 2018-11-05 14:24 | PN ---
Date/Time of Note Date/Time of Note DATE: 11/05/18 TIME: 14:23 Assessment/Plan VTE Prophylaxis Risk score (from Nsg)>0 risk: 4 SCD applied (from Nsg): Yes Pharmacological prophylaxis: LMWH Lines/Catheters IV Catheter Type (from Nrsg): Peripheral IV Urinary Cath still in place: No Assessment/Plan Hospital Course SUBJECTIVE: Patient with improved pleuritic chest pain, asking for de-escalation of Dilaudid today. OBJECTIVE: Vital signs-see below PHYSICAL EXAM: Constitutional: Adequately built,not in acute distress. HEENT: Head atraumatic and normocephalic. Eyes: Extraocular muscles intact. Anicteric sclerae. Pupils equal bilaterally, reactive to light. NECK: Supple without lymph node. CHEST: Diminished bibasilar. . No wheezing. No rhonchi. HEART: S1, S2. Regular rate and rhythm. ABDOMEN: Soft/non tender with no rebound tenderness. Bowel sounds were present. EXTREMITIES: No cyanosis, clubbing or edema. NEUROLOGIC: Anxious+ Alert and oriented x3. No focal deficit. No sensory deficit. PSYCHOSOCIAL: No signs of depression. INTEGUMENTARY: No open wounds. ASSESSMENT AND PLAN: 62 yo F w/ asthma, medicinal marijuana use, left shoulder surgery, left eyelid surgery, total hysterectomy, prediabetes, borderline dyslipidemia,on estrogen sup brought into the emergency room with sudden onset of left-sided lower chest wall pain with inspiration which has been going on since Thursday after her road trip from [place], found to have bilateral PE.. Bilateral pulmonary embolism -Dry Paste Supervisor recommended Lovenox ATC x72 hours, followed by [facility]. -Patient was counseled on stop taking estradiol. Pleuritic chest pain secondary to PE -PRN pain meds Mild dyslipidemia -Continue with diet regimen. Anxiety/depressive disorders -cont. home medications -refused xanax GERD -ppi Prophylaxis: lovenox/Protonix Disposition: Continue with Lovenox anticoagulation. Transition to Eliquis in a.m. and discharge planning. Patient was seen in collaboration with Dr. Smith. Result Diagram: 11/04/1851611/04/18516 Exam/Review of Systems Exam Vitals Vital Signs Date Temp Pulse Resp B/P (MAP) Pulse Ox O2 O2 Flow FiO2 Time Delivery Rate 11/05/18 98.1 76 17 121/68 99 11:26 (85) 11/05/18 Nasal 04:38 Cannula 11/05/18 3.0 01:31 11/04/18 32 12:42 Intake and Output 11/04/18 11/04/18 11/05/18 1515:00 23:00 07:00 IntakeIntake Total 600 ml 300 ml 600 ml BalanceBalance 600 ml 300 ml 600 ml Medications Medication Current Medications Fluoxetine HCl (Prozac) 30 mg DAILY PO Last administered on 11/05/18 09:16; Admin Dose 30 MG; Start 11/03/18 at 12:00 IV Flush (NS 3 ml) 3 ml PER PROTOCOL IV ; Start 11/03/18 at 11:00 Ondansetron HCl (Zofran Inj) 4 mg Q6H PRN IV NAUSEA/VOMITING Last administered on 11/05/18 08:14; Admin Dose 4 MG; Start 11/03/18 at 11:00 Acetaminophen (Tylenol Tab) 650 mg Q6H PRN PO .PAIN 1-3 OR TEMP Last administered on 11/04/18at 17:37; Admin Dose 650 MG; Start 11/03/18 at 11:00 Pantoprazole (Protonix Tab) 40 mg DAILY@06 PO ; Start 11/04/18 at 06:00 Enoxaparin Sodium (Lovenox) 65 mg Q12 SC Last administered on 11/05/18 08:27; Admin Dose 65 MG; Start 11/03/18 at 21:00 Oxycodone/ Acetaminophen (Percocet (5/ 325)) 1 tab Q4H PRN PO MODERATE PAIN LEVEL 4-6 Last administered on 11/04/18at 10:47; Admin Dose 1 TAB; Start 11/04/18 at 09:30 Ergocalciferol (Drisdol) 50,000 unit Th@09 PO Last administered on 11/04/18 10:47; Admin Dose 50,000 UNIT; Start 11/04/18 at 10:30 Docusate Sodium (Colace) 200 mg BID PO Last administered on 11/05/18 09:16; Admin Dose 200 MG; Start 11/04/18 at 11:30 Sodium Chloride 1,000 ml @ 80 mls/hr [id number] IV Last administered on 11/05/18 05:29; Admin Dose 80 MLS/HR; Start 11/04/18 at 14:30 Zolpidem Tartrate (Ambien) 5 mg HS PRN PO INSOMNIA Last administered on 11/04/18at 23:17; Admin Dose 5 MG; Start 11/04/18 at 23:30 Hydromorphone HCl (Dilaudid) 1 mg Q4H PRN IV .SEVERE PAIN 7-10; Start 11/05/18 at 15:00 ABBE PINTO NP Nov 05, 2018 14:24
[2018-11-05] MEDS ORDERED: HYDROmorphONE 2 MG/ML SYG IV PRN (15:00)
[2018-11-05] MEDS: OXYCODONE/ACETAMINOPHEN (5/325) TAB PO PRN (16:11)
[2018-11-05] MEDS ORDERED: hydrALAzine 20 MG INJ IV PRN (16:30)
[2018-11-05] MEDS: ZOLPIDEM 5 MG TAB PO PRN (21:03)
[2018-11-05] MEDS: ACETAMINOPHEN 325 MG TAB PO PRN (21:12)
[2018-11-06] VITALS: BP 145/72; PULSE 74; RESP 18
[2018-11-06] MEDS: ACETAMINOPHEN 325 MG TAB PO PRN (02:49)
[2018-11-06 04:00] VITALS: BP 138/68; PULSE 79; RESP 18
[2018-11-06] MEDS: PANTOPRAZOLE (EC) 40 MG TAB PO SCH (05:16)
[2018-11-06 07:53] VITALS: BP 170/77; PULSE 90; RESP 17
[2018-11-06] MEDS: DOCUSATE SODIUM 100 MG CAP PO SCH (09:21)
[2018-11-06] MEDS: FLUOXETINE 10 MG CAP PO SCH (09:21)
[2018-11-06] MEDS: OXYCODONE/ACETAMINOPHEN (5/325) TAB PO PRN (09:23)
[2018-11-06] MEDS: ENOXAPARIN 80 MG/0.8 ML SYG SC SCH (09:32)
--- NOTE | 2018-11-06 10:27 | PDOCDIS ---
Discharge Instructions CONDITION [id number] Patient Condition: [id number] Stable HOME CARE INSTRUCTIONS: [id number] Diet Instructions: [id number] Low Fat /Cholesterol FOLLOW UP/APPOINTMENTS Follow-up Plan [facility], you need to continue taking Eliquis for 6 months and [facility] can write refills. You would need to take 10mg Eliquis twice a day for the first 7 days and then change to 5 mg twice a day for the next 6 months with close monitoring with your primary care doctor and a contact center assistant. If you notice any abnormal/prolonged bleeding while you are on Eliquis, please go to Emergency room or contact your primary doctor immediately. Avoid any estrogen-containing hormonal pills. Avoid any long road-trips or flight trips until you been cleared by your primary doctor. ABBE PINTO NP Nov 06, 2018 10:27
--- NOTE | 2018-11-06 11:31 | DS ---
Date/Time of Note Date/Time of Note DATE: 11/06/18 TIME: 11:29 Discharge Summary Admission/Discharge Info Admit Date/Time Nov 03, 2018 at 09:30 Discharge Date/Time Discharge Diagnosis SUBJECTIVE: Patient with improved pleuritic chest pain, asking for de-escalation of Dilaudid today. Bilateral pulmonary embolism Pleuritic chest pain secondary to PE Mild dyslipidemia Anxiety/depressive disorders GERD Patient Condition: Stable Consults Procedures 11/03/2018: CTA chest IMPRESSION: 1. Bilateral pulmonary emboli involving the right middle lobe, right interlobar, right basal segmental and left basal segmental pulmonary arterial branches. 2. Small left pleural effusion with left lateral and posterior basilar subsegmental atelectasis. A small focal peripheral lateral basilar pulmonary infarct may be present. 3. Multiple hepatic cysts. 4. Heterogeneous sinusoidal appearance to the partially visualized upper spleen. Note a splenic infarct cannot be totally excluded. Hx of Present Illness This is a 62-year-old female with a history of asthma, medicinal marijuana use, left shoulder surgery, left eyelid surgery, total hysterectomy, prediabetes, borderline dyslipidemia, brought into the emergency room with sudden onset of left-sided lower chest wall pain with inspiration which has been going on since Thursday after her road trip from [place]. Patient denied any palpitation, shortness of breath, diaphoresis, nausea, vomiting, abdominal pain, back pain, fever, chills or other constitutional symptoms. Patient also does take estrogen supplementation at home. In the emergency room, patient's initial labs unremarkable. Coag studies n egative. Her chest CT showed Bilateral pulmonary emboli involving the right middle lobe, right interlobar, right basal segmental and left basal segmental pulmonary arterial branches. Vital signs stable except for initial pulse rate 109, blood pressure 174/91. EKG sinus tachycardia at rate of 109. Oxygen saturation 100% on 2 L nasal cannula. Patient was given 10 mg Eliquis in the emergency room. Hospital Course 62 yo F w/ asthma, medicinal marijuana use, left shoulder surgery, left eyelid surgery, total hysterectomy, prediabetes, borderline dyslipidemia,on estrogen sup brought into the emergency room with sudden onset of left-sided lower chest wall pain with inspiration which has been going on since Thursday after her road trip from [place], found to have bilateral PE.. Patient was anticoagulated with Lovenox. The ultrasound was negative for DVT.She was advised not to take any estrogen containing hormonal replacement therapy. She was treated with pain medication for pleuritic chest pain secondary to pulmonary embolism. Patient did well. Her pain resolved. Patient was approved for Eliquis for outpatient use. At this time, she is stable for discharge with outpatient [place] physician follow-up and pulmonary follow-up. Approximately 60-minute was spent in coordinating the discharge on this patient. Patient was seen in collaboration with Dr. Smith. [facility] Active Script[facility] Apixaban* (Eliquis*) 5 Mg Tablet, 10 MG PO BID, #30 TAB to be started after 7 days 10mg course completed Prov:ABBE PINTO NP 11/04/18 Apixaban* (Eliquis*) 5 Mg Tablet, 10 MG PO BID, #14 TAB take for 7 day and then start 5 mg twice a day for 6 months Prov:ABBE PINTO NP 11/04/18 Reported Medications Ibuprofen* (Motrin*) 800 Mg Tab, 800 MG PO Q8 PRN for PAIN, TAB 11/03/18 Cyclobenzaprine Hcl* (Cyclobenzaprine Hcl*) 10 Mg Tablet, 10 MG PO Q8 PRN for MUSCLE SPASMS, #60 TAB 11/03/18 Cholecalciferol* (Vitamin D3*) 1,000 Unit Tablet, 1000 UNIT PO DAILY, TAB 11/03/18 Estradiol* (Estrace*) 1 Mg Tablet, 1 MG PO DAILY, TAB 11/03/18 Fluoxetine Hcl* (Prozac*) 10 Mg Capsule, 30 MG PO DAILY, CAP 11/03/18 Follow-up Plan Follow-up with [facility] physicians on Thursday, you need to continue taking Eliquis for 6 months and [facility] physicians can write refills. You would need to take 10mg Eliquis twice a day for the first 7 days and then change to 5 mg twice a day for the next 6 months with close monitoring with your primary care doctor and a chemist physical. If you notice any abnormal/prolonged bleeding while you are on Eliquis, please go to Emergency room or contact your primary doctor immediately. Avoid any estrogen-containing hormonal pills. Avoid any long road-trips or flight trips until you been cleared by your primary doctor. Primary Care Provider Care Physician No Primary ABBE PINTO NP Nov 06, 2018 11:31
[2018-11-06 11:41] VITALS: BP 155/87; PULSE 90; RESP 19
[2018-11-11] MEDS ORDERED: APIXABAN 5 MG TABLET PO SCH (09:00)
== END 2018-11-06 12:00 | disposition home or self-care (01) | DRG 176 ==
LOC: E/R 06:30 → 6WM 09:30
PROVIDERS: ADMIT Internal Medicine; ATTEND Internal Medicine
DX: I26.99 Other pulmonary embolism without acute cor pulmonale (principal); E78.5 Hyperlipidemia, unspecified; K21.9 Gastro-esophageal reflux disease without esophagitis; F41.9 Anxiety disorder, unspecified; F32.9 Major depressive disorder, single episode, unspecified; J45.909 Unspecified asthma, uncomplicated; R73.03 Prediabetes; R07.81 Pleurodynia; Z79.02 Long term (current) use of antithrombotics/antiplatelets; Z90.710 Acquired absence of both cervix and uterus
CPT/HCPCS: 36415; 71045; 71275; 80048; 80053; 80061; 82550; 82553; 82652; 83036; 83735; 83880; 84100; 84484; 85025; 85610; 85730; 93005; 93306; 93970; 94664; 96374; 96375; J1170; J1885; J2405; J2765; J7030; Q9967